=== PATIENT | male | born 1980 | race Caucasian/White ===

== ENCOUNTER 2017-07-28 11:32 | Emergency (ER) | payer SELFPAY ==
[2017-07-28 11:49] LABS: ADD MAN DIFF? NO
[2017-07-28 11:52] LABS: BASO % 1 % (0-3); EOS # 0.1 x10^3/uL (0.0-0.7); EOS % 1 % (0-3); HEMATOCRIT 49.7 % (39.0-53.0); HEMOGLOBIN 17.2 g/dL (13.0-17.5); LYMPH # 1.7 x10^3/uL (1.0-4.8); LYMPH % 25 % (24-48); MEAN CORPUSCULAR HEMOGLOBIN 30 pg (25-35); MEAN CORPUSCULAR HGB CONC 35 g/dL (31-37); MEAN CORPUSCULAR VOLUME 87 fL (79-100); MONO # 0.5 x10^3/uL (0.0-1.1); MONO % 8 % (0-9); NEUT # 4.5 x10^3uL (1.8-7.7); NEUT % 66 % (31-73); PLATELET COUNT 266 x10^3/uL (140-400); RED BLOOD COUNT 5.71 x10^6/uL (4.30-5.70); RED CELL DISTRIBUTION WIDTH 13.2 % (11.5-14.5); WHITE BLOOD COUNT 6.9 x10^3/uL (4.0-11.0)
[2017-07-28] MEDS: IV NORMAL SALINE 1000ML BAG 1,000 ML IV ×3 (11:54→13:53)
[2017-07-28 12:01] LABS: ANION GAP 14 (6-14); BLOOD UREA NITROGEN 14 mg/dL (8-26); CALCIUM 9.4 mg/dL (8.5-10.1); CARBON DIOXIDE 23 mmol/L (21-32); CHLORIDE 101 mmol/L (98-107); CREATININE 1.1 mg/dL (0.7-1.3); GFR 76.2; GLUCOSE 85 mg/dL (70-99); POTASSIUM 3.6 mmol/L (3.5-5.1); SODIUM 138 mmol/L (136-145)
[2017-07-28 12:06] LABS: CREATINE KINASE 261 U/L (39-308)
[2017-07-28 12:08] LABS: D-DIMER < 0.27 ug/mlFEU (0.00-0.50)
[2017-07-28 12:10] LABS: TROPONINI < 0.017 ng/mL (0.000-0.055)
[2017-07-28 12:14] LABS: NT-PRO BNP 19 pg/mL (0-124)
[2017-07-28] MEDS: MORPHINE SULFATE 10 MG/ML VIAL. IV (12:22)
== END 2017-07-28 14:35 | disposition home or self-care (01) ==
LOC: ER 11:32
DX: R07.89 Other chest pain (principal); Z88.1 Allergy status to other antibiotic agents
CPT/HCPCS: 36415; 71045; 80048; 82550; 83880; 84484; 85025; 85379; 93005; 96374; 99285-25; J2270; J7030